=== PATIENT | female | born 1955 | race Hispanic/Latino ===

== ENCOUNTER 2018-02-04 12:32 | Day surgery (SDC) | payer BC ==
[2018-02-02 06:49] VITALS: BMI 35.6
[2018-02-04] MEDS ORDERED: Etomidate 20 mg/10ml Inj IV ONE (14:06)
[2018-02-04] MEDS ORDERED: Propofol 10 mg/ml Inj (20 ML) ONE (14:06)
[2018-02-04] MEDS ORDERED: Lidocaine 2% Inj (20ml) ONE (14:07)
[2018-02-04] MEDS ORDERED: Lactated Ringer's 1,000 ML IV SCH (14:15)
[2018-02-04 15:37] VITALS: PULSE 67; RESP 17; TEMP 97.8; O2SAT 97
[2018-02-04 16:32] VITALS: BP 138/70
== END 2018-02-04 16:36 | disposition home or self-care (01) ==
LOC: ENDO 12:32
PROVIDERS: ATTEND Internal Medicine Gastroenterology
DX: K62.5 Hemorrhage of anus and rectum (principal); K64.8 Other hemorrhoids; R19.4 Change in bowel habit
CPT/HCPCS: 45378; J2405; J2704; J7040; J7120